=== PATIENT | male | born 1955 | race Caucasian/White ===

== ENCOUNTER 2025-10-07 09:05 | Emergency (ER) | payer MEDICARE, SELFPAY ==
[2025-10-07 09:23] VITALS: BP 146/61; PULSE 56; RESP 16; TEMP 36.2; O2SAT 98
--- NOTE | 2025-10-07 09:29 | ED.URI ---
HPI - URI/Sore Throat General Chief Complaint: Upper Respiratory Infection Stated Complaint: sinus infection symptoms patient presents the express care accompanied by spouse was also patient at the express care with complaints continued nasal congestion, sinus pain, headaches, nasal drainage, scratchy throat, take opinion about 1 month ago. Patient has been using some [id number] cough cold medication with some relief of symptoms. 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 Denies fever, chills, body aches, shortness of breath, dizziness, nausea, vomiting, diarrhea. Related Data Home Medications ?Medication ?Instructions ?Recorded ?Confirmed ?Last Taken ?Type aspirin 81 mg tablet,delayed 81 mg PO DAILY 03/01/20 10/07/25 Unknown History release atorvastatin 80 mg tablet 80 mg PO DAILY 03/01/20 10/07/25 Unknown History carvedilol 3.125 mg tablet 3.125 mg PO Q12H 03/01/20 10/07/25 Unknown History clopidogrel 75 mg tablet 75 mg PO DAILY 03/01/20 10/07/25 Unknown History dulaglutide 0.75 mg/0.5 mL 0.75 mg subcut WEEKLY 03/01/20 10/07/25 Unknown History subcutaneous pen injector (Trulicity) ezetimibe 10 mg tablet 10 mg PO DAILY 03/01/20 10/07/25 Unknown History insulin degludec 200 unit/mL (3 10 unit subcut DAILY 03/01/20 10/07/25 Unknown History mL) subcutaneous pen (Tresiba FlexTouch U-200 insulin) isosorbide mononitrate 60 mg 60 mg PO DAILY 03/01/20 10/07/25 Unknown History tablet,extended release 24 hr lisinopril 20 mg tablet 20 mg PO DAILY 03/01/20 10/07/25 Unknown History metformin 1,000 mg tablet 1,000 mg PO BID 03/01/20 10/07/25 Unknown History omeprazole 40 mg capsule,delayed 40 mg PO DAILY 03/01/20 10/07/25 Unknown History release sildenafil (pulm.hypertension) 20 20 mg PO DAILY 03/01/20 10/07/25 Unknown History mg tablet Allergies Allergy/AdvReac Type Severity Reaction Status Date / Time inositol Allergy Unknown Unknown Verified 10/07/25 09:36 niacin Allergy Unknown Unknown Verified 10/07/25 09:36 niacinamide Allergy Unknown Unknown Verified 10/07/25 09:36 No Known Allergies Allergy Verified 01/31/17 03:53 Review of Systems Constitutional: Constitutional: Reports as per HPI, Denies chills, Reports fatigue, Denies fever(s) and Denies weakness Eyes: Eyes: Reports no additional eye complaints ENT: Reports as per HPI, Denies vertigo, Denies dizziness, Reports nasal congestion and Reports sore throat Comments: Nasal drainage, sinus pain Cardiovascular: Cardiovascular: Reports no additional cardiovascular complaints Respiratory: Respiratory: Reports as per HPI, Reports chest congestion, Reports cough, Denies dyspnea and Denies wheezing Gastrointestinal: Gastrointestinal: Reports no additional gastrointestinal complaints Genitourinary: Genitourinary: Reports no additional male genitourinary complaints Musculoskeletal: Musculoskeletal: Reports as per HPI, Denies back pain and Denies myalgias Integumentary/Breasts: Skin/Breast: Reports as per HPI, Denies erythema and Denies rash Neurologic: Reports as per HPI, Denies vertigo, Denies dizziness, Reports headache(s) and Denies weakness Psychiatric: Psychiatric: Reports no additional psychiatric complaints Endocrine: Endocrine: Reports no additional endocrine complaints Hematologic/Lymphatic: Hematologic/Lymphatic: Reports no additional hematologic/lymphatic complaints Allergic/Immunologic: Allergic/Immunologic: Reports no additional allergic/immunologic complaints [facility] Family History Family History (Updated 05/23/16 @ 23:19 by DOCTOR UNKNOWN) Father Family history of diabetes mellitus in first degree relative Mother Family history of diabetes mellitus in first degree relative Family history of coronary artery disease Social History Social History Smoking status: Never smoker Alcohol intake: current Exam Const: General: healthy appearing and no acute distress Nutritional Appearance: well nourished Orientation/consciousness: patient oriented x3 Limitations: no limitations HENMT: Head: normal to inspection Ears: external ears normal and TM's abnormal bilaterally ( dullness noted with no erythema) Face/Nose/Sinus: Normal external nose present and nares abnormal ( minimal erythema and edema noted) Face and sinus: normal facial exam and sinus tenderness maxillary Mouth: Yes Normal oral and palatal mucosa present, Yes lip normal and Yes moist mucous membranes Throat: posterior oropharynx abnormal ( mild erythema with no edema or exudate) Neck: Neck: normal visual inspection and no lymphadenopathy Resp: Effort & Inspection: normal respiratory effort Auscultation: clear to auscultation bilaterally Cardio: Rate: regular rate Rhythm: regular rhythm Skin: General skin exam: normal color Rashes: no rashes Wounds: no wounds Neuro: General: patient oriented x3 Speech: normal speech Gait exam (Neuro): Normal gait present Psych: Mental Status: mental status grossly normal Affect: normal affect Attitude: cooperative Course Course Level of Care: Express Care Visit Vital Signs Vital signs: Vital Signs Temperature 97.1 F L 10/07/25 09:23 Pulse Rate 56 L 10/07/25 09:23 Respiratory Rate 16 10/07/25 09:23 Blood Pressure 146/61 H 10/07/25 09:23 Pulse Oximetry 98 10/07/25 09:23 Temperature 97.1 F L 10/07/25 09:23 Pulse Rate 56 L 10/07/25 09:23 Respiratory Rate 16 10/07/25 09:23 Blood Pressure 146/61 H 10/07/25 09:23 Pulse Oximetry 98 10/07/25 09:23 MDM MDM Narrative Medical decision making narrative: The patient was evaluated by myself in the express care. History is obtained from patient who is an independent historian and physical exam was performed. Available medical records were reviewed at this time. Exam findings show no acute concerns or changes; patient is non-toxic appearing and is in no distress. Patient is appropriate for outpatient treatment and follow-up. I have evaluated and discussed social determinants of health with the patient that could potentially impact subsequent diagnosis and treatment plans. Differential diagnosis and treatment plan were discussed with the patient. Patient agrees with discussion and after shared medical decision making agrees with plan of care. All questions were answered to the patient's satisfaction. Differential Diagnosis Differential Diagnosis: sinusitis, upper respiratory infection, strep, pharyngitis Medical Records I have reviewed the following patient records and this information was taken into consideration when formulating the assessment and plan.: previous labs, previous ER visits, previous hospitalizations and previous clinic visits Discharge Plan Discharge Clinical Impression: Sinusitis, Otitis media Patient Disposition: Home Condition: Stable Instructions: Antibiotic Form, Sinusitis (ED) Additional Instructions: Take the antibiotics as directed for the entire course. Do not miss any doses. What you are taking antibiotics and is recommended to take a probiotic or have yogurt daily to return the good gut bacteria to your system. This can also help with acute diarrhea while taking antibiotics. It can take 24-48 hours for the antibiotics to start to relieve your symptoms continue to take these medications to help with various symptoms: Tylenol or Motrin for pain, headache, or fever Flonase/fluticasone or Nasacort/triamcinolone nasal spray- helps with congestion and nasal drainage. Sudafed/pseudoephedrine helps with sinus pain and congestion. Caution with high blood pressure. Use a humidifier or vaporizer at night. Drink plenty of water. 8-10 glasses per day. Mucinex/[place] directed and be sure to take with 8oz of water. Warm compresses over the forehead and cheeks to promote sinus drainage. Return to urgent care or go to the ER for new or worsening symptoms. Follow up with Primary provider if not improved after 1 week. Patient Language: Nepali Prescriptions: New promethazine-DM 6.25-15 mg/5 mL syrup 5 ml PO Q4-6H PRN (Reason: cough) Qty: 118 0RF amoxicillin-pot clavulanate 875-125 mg tablet 1 tablet PO Q12H Qty: 20 0RF No Action aspirin 81 mg tablet,delayed release (DR/EC) 81 mg PO DAILY atorvastatin 80 mg tablet 80 mg PO DAILY carvedilol 3.125 mg tablet 3.125 mg PO Q12H Rx Instructions: must administer with a meal/food clopidogrel 75 mg tablet 75 mg PO DAILY Trulicity 0.75 mg/0.5 mL pen injector 0.75 mg SUB-Q WEEKLY Jardiance 25 mg tablet 25 mg PO DAILY Qty: 30 0RF ezetimibe 10 mg tablet 10 mg PO DAILY Tresiba FlexTouch U-200 200 unit/mL (3 mL) insulin pen 10 unit SUB-Q DAILY lisinopril 20 mg tablet 20 mg PO DAILY isosorbide mononitrate 60 mg tablet extended release 24 hr 60 mg PO DAILY metformin 1,000 mg tablet 1,000 mg PO BID omeprazole 40 mg capsule,delayed release(DR/EC) 40 mg PO DAILY sildenafil (pulm.hypertension) 20 mg tablet 20 mg PO DAILY Rx Instructions: Take one tablet as needed tamsulosin [Flomax] 0.4 mg capsule 0.4 mg PO DAILY Qty: 90 0RF Follow-up/Referrals: Franco Camacho DO [Primary Care Provider, Internal Medicine] Time of Disposition: 09:39
== END 2025-10-07 10:00 | disposition home or self-care (01) ==
PROVIDERS: Emergency Provider Nurse Practitioner Family; PCP Internal Medicine
DX: J32.9 Chronic sinusitis, unspecified (principal); H66.93 Otitis media, unspecified, bilateral; Z79.82 Long term (current) use of aspirin
CPT/HCPCS: 99213; G0463